=== PATIENT | male | born 1965 | race Caucasian/White ===

== ENCOUNTER → 2023-01-02 13:08 | Outpatient (BNVA) | payer MEDICARE, OTHER, SELFPAY | PROVIDERS: Family Provider Family Medicine; PCP Family Medicine; Visit Provider Nurse Practitioner Family | DX: I89.0 Lymphedema, not elsewhere classified (principal); L97.812 Non-pressure chronic ulcer of other part of right lower leg with fat layer exposed; I96 Gangrene, not elsewhere classified | CPT/HCPCS: 97597; 99213 ==

== ENCOUNTER → 2023-01-15 14:58 | Outpatient (BNVA) | payer MEDICARE, OTHER, SELFPAY | PROVIDERS: Family Provider Family Medicine; PCP Family Medicine; Visit Provider Podiatrist Foot & Ankle Surgery | DX: Q82.8 Other specified congenital malformations of skin (principal); I73.9 Peripheral vascular disease, unspecified; M21.41 Flat foot [pes planus] (acquired), right foot; M21.42 Flat foot [pes planus] (acquired), left foot; L60.3 Nail dystrophy | CPT/HCPCS: 17110; 99203 ==

== ENCOUNTER 2023-02-12 12:30 | Outpatient (CLI) | payer MEDICARE, OTHER, SELFPAY ==
--- NOTE | 2023-02-12 13:30 | USCV_ITS ---
Hilario Zarate Age: 57 Gender: M : 1965 Exam Date: 02/12/2023 12:47 Ordering Phys: Kyle Armendariz DPM Technologist: Warren Jimenes Exam Location: [facility] [place] [facility] [place] Indication: PRE OF FOR NAIL REMOVAL RIGHT LEFT Brachial 167.00 mmHg Brachial 156.00 mmHg Pressure (mmHg) Waveform Pressure (mmHg) Waveform 153.00 [employer] 187.00 150.00 DPA 151.00 0.92 Ankle/Brachial Index 1.12 133.00 Pre-Exercise Toe Pressure 134.00 0.80 Pre-Exercise Toe/Brachial Index 0.80 FINDINGS Resting DORIS of 0.92 on the right and 1.12 on the left. Resting TBI of 0.8 bilaterally. CONCLUSIONS No significant arterial obstruction, based on the above findings Dr Galen Willoughby MD [facility] (Electronically Signed) Final Date: 14 Feb 2023 13:35 S
== END 2023-02-12 12:31 | disposition home or self-care (01) ==
LOC: RAD 12:43
PROVIDERS: PCP Family Medicine; Visit Provider Podiatrist Foot & Ankle Surgery
DX: I73.9 Peripheral vascular disease, unspecified (principal)
CPT/HCPCS: 93922

== ENCOUNTER → 2023-04-09 13:59 | Outpatient (BNVA) | payer MEDICARE, OTHER, SELFPAY | PROVIDERS: PCP Family Medicine; Visit Provider Podiatrist Foot & Ankle Surgery | DX: L60.3 Nail dystrophy (principal); Q82.8 Other specified congenital malformations of skin; L84 Corns and callosities; I73.9 Peripheral vascular disease, unspecified; M21.41 Flat foot [pes planus] (acquired), right foot; M21.42 Flat foot [pes planus] (acquired), left foot | CPT/HCPCS: 11721; 17110 ==

== ENCOUNTER → 2023-06-19 11:13 | Outpatient (BNVA) | payer MEDICARE, OTHER, SELFPAY | PROVIDERS: PCP Family Medicine; Visit Provider Podiatrist Foot & Ankle Surgery | DX: M72.2 Plantar fascial fibromatosis (principal); M21.41 Flat foot [pes planus] (acquired), right foot; M21.42 Flat foot [pes planus] (acquired), left foot; L60.3 Nail dystrophy; I73.9 Peripheral vascular disease, unspecified; Q82.8 Other specified congenital malformations of skin | CPT/HCPCS: 17110; 99213 ==

== ENCOUNTER → 2024-03-26 09:15 | Outpatient (BNVA) | payer MEDICARE, OTHER, SELFPAY | PROVIDERS: PCP Family Medicine; Visit Provider Podiatrist Foot & Ankle Surgery | DX: L60.3 Nail dystrophy (principal); I73.9 Peripheral vascular disease, unspecified; Q82.8 Other specified congenital malformations of skin | CPT/HCPCS: 11056; 11721 ==

== ENCOUNTER → 2024-05-11 14:20 | Outpatient (BNVA) | payer MEDICARE, OTHER, SELFPAY | PROVIDERS: PCP Family Medicine; Visit Provider Podiatrist Foot & Ankle Surgery | DX: M79.672 Pain in left foot (principal); I73.9 Peripheral vascular disease, unspecified; Q82.8 Other specified congenital malformations of skin; L60.3 Nail dystrophy | CPT/HCPCS: 11055; 73630; 99213 ==

== ENCOUNTER → 2024-07-13 13:49 | Outpatient (BNVA) | payer MEDICARE, OTHER, SELFPAY | PROVIDERS: PCP Family Medicine; Visit Provider Podiatrist Foot & Ankle Surgery | DX: L60.3 Nail dystrophy; I73.9 Peripheral vascular disease, unspecified; Q82.8 Other specified congenital malformations of skin | CPT/HCPCS: 99213 ==

== ENCOUNTER 2024-08-10 14:24 | Outpatient (CLI) | payer MEDICARE, OTHER, SELFPAY ==
[2024-08-10 15:31] LABS: Alanine Aminotransferase 7 U/L (0-41); Albumin Level 4.1 g/dL (3.5-5.2); Alkaline Phosphatase 76 U/L (40-130); Anion Gap 12.6 (5-19); Aspartate Amino Transferase 10 U/L (0-40); Blood Urea Nitrogen 23 mg/dL (6-20); Calcium 8.8 mg/dL (8.5-10.5); Carbon Dioxide 28 mmol/L (22-29); Chloride 102 mmol/L (98-107); Globulin 2.3 g/dL (1.3-4.6); Glucose 97 mg/dL (65-115); Osmolality Calculated 292 mOsm/kg (285-295); Potassium 3.6 mmol/L (3.5-5.1); Sodium 139 mmol/L (136-145); Total Bilirubin 0.4 mg/dL (0.15-1.2); Total Protein 6.4 g/dL (6.6-8.7)
== END 2024-08-10 14:25 | disposition home or self-care (01) ==
LOC: LAB 14:25
PROVIDERS: PCP Family Medicine; Visit Provider Otolaryngology
DX: R09.89 Other specified symptoms and signs involving the circulatory and respiratory systems (principal); K11.8 Other diseases of salivary glands
CPT/HCPCS: 36415; 80053

== ENCOUNTER → 2024-10-12 13:23 | Outpatient (BNVA) | payer MEDICARE, OTHER, SELFPAY | PROVIDERS: PCP Family Medicine; Visit Provider Podiatrist Foot & Ankle Surgery | DX: I73.9 Peripheral vascular disease, unspecified (principal); Q82.8 Other specified congenital malformations of skin; M21.41 Flat foot [pes planus] (acquired), right foot; M21.42 Flat foot [pes planus] (acquired), left foot | CPT/HCPCS: 17110; 99213 ==

== ENCOUNTER 2024-11-30 10:27 | Outpatient (CLI) | payer MEDICARE, OTHER, SELFPAY ==
--- NOTE | 2024-11-30 | FL_ITS ---
ID barium swallow [id number] REASON FOR EXAM: OTHER SYMPTOMS AND SIGNS INVOLVING THE CIRC AND RESP SYETEMS FLUOROSCOPY TIME: 3min [id number] # OF SPOT FILMS: Multiple TECHNIQUE: Patient was examined in the upright AP and lateral projections, prone [place], supine, and LPO positions. FINDINGS: There was normal anatomy and motility of the cervical esophagus with no penetration or aspiration. In the upright position the esophagus intermittently dilated with failure of relaxation of the distal esophageal sphincter. In the [place], supine, and LPO position the above findings in the thoracic esophagus were significantly accentuated with dilatation and significant retention of barium. There were episodes of moderate tertiary contractions. There was a small hiatal hernia with moderate reflux to the mid esophagus. IMPRESSION: Thoracic esophageal dysmotility and dilatation with accentuation in the [place], supine, and LPO positions. Small hiatal hernia with moderate reflux. MTDD
== END 2024-11-30 10:28 | disposition home or self-care (01) ==
LOC: RAD 10:30
PROVIDERS: PCP Family Medicine; Visit Provider Otolaryngology
DX: R09.89 Other specified symptoms and signs involving the circulatory and respiratory systems (principal); K11.8 Other diseases of salivary glands; K22.89 Other specified disease of esophagus; K22.4 Dyskinesia of esophagus; K44.9 Diaphragmatic hernia without obstruction or gangrene
CPT/HCPCS: 74220

== ENCOUNTER 2024-12-21 10:35 | Outpatient (CLI) | payer MEDICARE, OTHER, SELFPAY ==
--- NOTE | 2024-12-21 10:39 | FL_ITS ---
WS: [id number] Exam: FL barium swallow modifd [id number] Date/Time of Exam: 12/21/2024 10:55 AM Reason For Exam: Other dysphagia Fluoroscopy time: minutes # of spot films: Modified barium swallow was performed in conjunction with the speech therapy service. Oral pharyngeal phase of swallowing was normal. The patient tolerated all consistencies of barium mixture foodstuffs without aspiration. Mild penetration into the laryngeal inlet was observed when the patient ingested thin liquid. No aspiration. The patient swallowed a barium tablet without difficulty. The tablet was retained in the distal esophagus for a short period of time before being propelled into the stomach. FL/FL barium swallow modifd [id number] IMPRESSION: 1. No aspiration identified. 2. Mild penetration into the laryngeal inlet when the patient ingested thin liq uid barium solution. A separate report and recommendations will follow from the speech therapy servi ce.
== END 2024-12-21 10:36 | disposition home or self-care (01) ==
LOC: RAD 10:36
PROVIDERS: PCP Family Medicine; Visit Provider Otolaryngology
DX: R09.89 Other specified symptoms and signs involving the circulatory and respiratory systems (principal); R93.89 Abnormal findings on diagnostic imaging of other specified body structures
CPT/HCPCS: 74230; 92611

== ENCOUNTER → 2025-01-11 12:52 | Outpatient (BNVA) | payer MEDICARE, OTHER, SELFPAY | PROVIDERS: PCP Family Medicine; Visit Provider Podiatrist Foot & Ankle Surgery | DX: I73.9 Peripheral vascular disease, unspecified (principal); M21.41 Flat foot [pes planus] (acquired), right foot; M21.42 Flat foot [pes planus] (acquired), left foot; Q82.8 Other specified congenital malformations of skin | CPT/HCPCS: 99213 ==

== ENCOUNTER 2025-07-28 10:42 | Outpatient (RCR) | payer MEDICARE, OTHER, SELFPAY | END 2025-07-29 23:59 | disposition home or self-care (01) | LOC: MST 10:42 | PROVIDERS: Visit Provider Specialist | DX: R13.19 Other dysphagia (principal) | CPT/HCPCS: 92526; 92610 ==

== ENCOUNTER 2025-07-28 10:43 | Outpatient (RCR) | payer MEDICARE, OTHER, SELFPAY | END 2025-07-29 23:59 | disposition home or self-care (01) | LOC: MPT 10:43 | PROVIDERS: Visit Provider Nurse Practitioner Family | DX: M62.81 Muscle weakness (generalized) (principal); R26.81 Unsteadiness on feet | CPT/HCPCS: 97162 ==